=== PATIENT | male | born 1995 | race Two or more races ===

== ENCOUNTER 2023-03-22 18:59 | Emergency (ER) | payer MEDICAID, OTHER ==
[~2023-03-22] VITALS: Ht 172.7 cm; Wt 81.5 kg
[2023-03-22 19:18] VITALS: BP 141/93
[2023-03-22] MEDS ORDERED: KETOROLAC TROMETH 60MG/2ML VIAL IM ONE (19:45)
[2023-03-22] MEDS ORDERED: CYCL-837 PO (19:47)
[2023-03-22] MEDS ORDERED: IBUP-1456 PO (19:47)
== END 2023-03-22 21:13 | disposition home or self-care (01) ==
LOC: ER 18:59
DX: S46.911A Strain of unspecified muscle, fascia and tendon at shoulder and upper arm level, right arm, initial encounter (principal); X50.0XXA Overexertion from strenuous movement or load, initial encounter; Y93.89 Activity, other specified; Y92.89 Other specified places as the place of occurrence of the external cause; Y99.8 Other external cause status
CPT/HCPCS: 72070; 73030; 96372; 99284; J1885